=== PATIENT | male | born 1985 | race African-American/Black ===

== ENCOUNTER 2024-03-08 09:24 | Emergency (ER) | payer SELFPAY ==
[2024-03-08] MEDS ORDERED: Lidocaine 1% (PF) 30 ML VIAL ONE (10:01)
[2024-03-08] MEDS ORDERED: Ibuprofen 200 MG TAB ONE (10:01)
[2024-03-08] MEDS ORDERED: Acetaminophen 500 MG TAB ONE (12:18)
[2024-03-08] MEDS ORDERED: Triple Antibiotic Oint 1 GM Packet ONE (12:18)
== END 2024-03-08 12:29 | disposition home or self-care (01) ==
LOC: CSHERS 09:24
DX: L03.011 Cellulitis of right finger (principal)
CPT/HCPCS: 10060

== ENCOUNTER 2025-01-05 16:05 | Emergency (ER) | payer SELFPAY ==
[2025-01-05] MEDS ORDERED: Amoxicillin/Potassium Clav 875 MG TAB ONE (19:39)
[2025-01-05] MEDS ORDERED: Ketorolac Tromethamine 30 MG (1 mL) VIAL ONE (19:39)
[2025-01-05] MEDS ORDERED: Dexamethasone 4 MG TAB ONE (19:39)
== END 2025-01-05 20:36 | disposition home or self-care (01) ==
LOC: CSHERS 16:05
DX: K04.01 Reversible pulpitis (principal)
CPT/HCPCS: 96372; 99282; J1885; J8540